=== PATIENT | female | born 1970 | race Two or more races ===

== ENCOUNTER 2022-12-16 20:50 | Emergency (ER) | payer OTHER ==
[~2022-12-16] VITALS: Ht 165.1 cm; Wt 84.0 kg
[2022-12-16 21:02] VITALS: BP 125/83
[2022-12-17] MEDS ORDERED: IBUP-2028 MT (03:02)
== END 2022-12-17 03:30 | disposition home or self-care (01) ==
LOC: ER 20:50
DX: S09.8XXA Other specified injuries of head, initial encounter (principal); S39.012A Strain of muscle, fascia and tendon of lower back, initial encounter; S16.1XXA Strain of muscle, fascia and tendon at neck level, initial encounter; V49.59XA Passenger injured in collision with other motor vehicles in traffic accident, initial encounter; Y93.89 Activity, other specified; Y92.488 Other paved roadways as the place of occurrence of the external cause
CPT/HCPCS: 99284